=== PATIENT | male | born 1960 | race Caucasian/White ===

== ENCOUNTER 2022-07-28 12:55 | Outpatient (REF) | payer OTHER, SELFPAY ==
[2022-07-28 13:51] LABS: Hematocrit 42.9 % (42.0-52.0); Hemoglobin 14.5 g/dl (14.0-18.0); Mean Corpuscular HGB Conc 33.8 g/dl (31.0-36.0); Mean Corpuscular Hemoglobin 29.4 pg (27.0-33.0); Mean Platelet Volume 10.7 fL (9.4-12.4); Platelet Count 211 X10*3/uL (160-400); Red Blood Count 4.93 X10*6/uL (4.60-5.80); Red Cell Distribution Width 13.3 % (11.0-16.0); White Blood Count 9.7 X10*3/uL (4.8-10.8)
[2022-07-28 14:18] LABS: Alanine Aminotransferase 35 U/L (0-40); Albumin Level 4.2 g/dL (3.5-5.0); Alkaline Phosphatase 64 U/L (39-117); Aspartate Amino Transferase 30 U/L (5-37); Bilirubin Direct < 0.2 mg/dL (0.0-0.5); Bilirubin Total 0.5 mg/dL (0.0-1.0); Lipase 34 U/L (8-78); Total Protein 6.8 g/dL (6.5-8.0)
[2022-07-28 15:24] LABS: Free T4 (Free Thyroxine) 0.78 ng/dL (0.71-1.85)
== END 2022-07-28 12:56 | disposition home or self-care (01) ==
LOC: HO.10HDL 12:55
PROVIDERS: Visit Provider Internal Medicine Gastroenterology
DX: R11.2 Nausea with vomiting, unspecified (principal); R19.7 Diarrhea, unspecified
CPT/HCPCS: 36415; 80076; 83690; 84439; 84443; 85027